=== PATIENT | female | born 1940 | race Caucasian/White ===

== ENCOUNTER 2025-04-30 08:26 | Outpatient (CLI) | payer MEDICARE ==
--- NOTE | 2025-04-30 10:10 | RADIOLOGY REPORT ---
CLINICAL HISTORY: Wedge compression fracture of thoracic vertebra. TECHNIQUE: Multi sequence multi planar MRI images of the thoracic spine were obtained without IV contrast. COMPARISON: None FINDINGS: Increased thoracic kyphosis. There is a compression fracture of the T9 vertebral body with up to 40% loss of height at its anterior aspect. The fracture appears largely chronic. Questionable minimal patchy STIR hyperintense signal at the anterior aspect of the T9 vertebral body, can not completely exclude a small subacute component of the fracture. No other compression fracture in the thoracic spine. Prominent Schmorl's node at the superior endplate of T7 with mild adjacent marrow edema, possibly an acute or subacute Schmorl's node. There are Modic type 1 endplate changes at T6-T7. Posterior elements appear intact. No other evidence of acute fracture. Multilevel disc desiccation with areas of moderate disc space narrowing. Multilevel mild disc bulges without significant spinal canal stenosis. Multilevel facet hypertrophy with areas of [id number] neural foraminal stenosis, greatest at the T7-T8, T8-T9, and T9-T10 levels. Paraspinal soft tissues are unremarkable. Small T2 hyperintense lesion of the posterior aspect of the right hepatic lobe incidentally noted measuring up to 0.8 cm, possibly a small cyst, although not well characterized on this exam. IMPRESSION: 1. Compression fracture of the T9 vertebral body appears mostly chronic. Questionable minimal patchy STIR hyperintense signal at the anterior aspect of the T9 vertebral body, can not exclude a small subacute component of the fracture. 2. Prominent Schmorl's node at the superior endplate of the T7 vertebral body with adjacent mild marrow edema, possibly an acute or subacute Schmorl's node. 3. 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 4. Small T2 hyperintense lesion in the posterior aspect of the liver, possibly a cyst, although not well evaluated on this examination. Nonemergent ultrasound could be considered to further evaluate if clinically indicated.
== END 2025-04-30 23:59 | disposition home or self-care (01) ==
LOC: MRI02 08:26
PROVIDERS: ATTEND Anesthesiology Pain Medicine
DX: S22.070D Wedge compression fracture of T9-T10 vertebra, subsequent encounter for fracture with routine healing (principal); M51.34 Other intervertebral disc degeneration, thoracic region; M47.814 Spondylosis without myelopathy or radiculopathy, thoracic region; M40.294 Other kyphosis, thoracic region; M48.04 Spinal stenosis, thoracic region; M51.44 Schmorl's nodes, thoracic region; M81.0 Age-related osteoporosis without current pathological fracture; R93.7 Abnormal findings on diagnostic imaging of other parts of musculoskeletal system; X58.XXXD Exposure to other specified factors, subsequent encounter
CPT/HCPCS: 72146